=== PATIENT | male | born 1935 | race African-American/Black ===

== ENCOUNTER 2018-04-08 11:30 | Emergency (ER) | payer MEDICARE, OTHER ==
[~2018-04-08] VITALS: Ht 167.6 cm; Wt 65.0 kg
[2018-04-08 12:16] VITALS: BP 157/55
== END 2018-04-08 17:59 | disposition left against medical advice (07) ==
LOC: ER 11:30
DX: Z53.21 Procedure and treatment not carried out due to patient leaving prior to being seen by health care provider (principal)

== ENCOUNTER 2018-04-09 06:19 | Emergency (ER) | payer MEDICARE, OTHER ==
[~2018-04-09] VITALS: Ht 170.2 cm; Wt 85.0 kg
[2018-04-09 12:11] LABS: BASOPHILS % 0.2 % (0.0-2.0); HEMOGLOBIN. 12.5 g/dL (14.0-18.0); LYMPHOCYTES % 33.1 % (20.0-50.0); MEAN CORPUSCULAR HEMOGLOBIN 30.2 pg (28.0-32.0); MEAN CORPUSCULAR VOLUME 89.2 fL (80.0-94.0); MEAN PLATELET VOLUME 7.4 fl (7.4-10.4); MONOCYTES % 5.5 % (2.0-8.0); NEUTROPHILS % 60.2 % (40.0-76.0); PLATELET 235 x1000/uL (130-400); RED BLOOD CELL COUNT 4.15 mill/uL (4.7-6.1)
[2018-04-09 12:12] LABS: CHLORIDE 107 mEq/L (98-107)
[2018-04-09 12:14] LABS: INR 1.1
[2018-04-09 12:20] LABS: C REACTIVE PROTEIN QUANT 1.1 mg/L (0.0-3.0)
[2018-04-09 12:46] VITALS: BP 190/76
[2018-04-09 12:59] LABS: CLARITY URINE CLEAR (CLEAR); COLOR URINE YELLOW (YELLOW); KETONES URINE NEGATIVE (NEGATIVE); LEUKOCYTE ESTERASE URINE NEGATIVE (NEGATIVE); NITRITE URINE NEGATIVE (NEGATIVE); OCCULT BLOOD URINE NEGATIVE (NEGATIVE); PH URINE 7.5 (4.5-8.0); PROTEIN URINE NEGATIVE (NEGATIVE); SPECIFIC GRAVITY URINE 1.011 (1.005-1.030); UROBILINOGEN URINE 0.2 E.U./dL (0.2-1.0)
== END 2018-04-09 15:03 | disposition home or self-care (01) ==
LOC: ER 06:19 → CANBEDREQ 22:20
DX: L97.828 Non-pressure chronic ulcer of other part of left lower leg with other specified severity (principal); D64.9 Anemia, unspecified; Z86.73 Personal history of transient ischemic attack (TIA), and cerebral infarction without residual deficits; Z98.890 Other specified postprocedural states
CPT/HCPCS: 36415; 71045; 83880; 84484; 85651; 86140; 93005; 93923; 99284

== ENCOUNTER 2019-02-16 08:38 | Inpatient (IN) | payer MEDICARE, OTHER ==
[~2019-02-16] VITALS: Ht 165.1 cm; Wt 63.5 kg
[2019-02-16] MEDS ORDERED: HYDRALAZINE 20MG/ML VIAL IV ONE (12:00)
[2019-02-16 12:15] LABS: CHLORIDE 109 mEq/L (98-107)
[2019-02-16 12:23] LABS: BASOPHILS % 0.4 % (0.0-2.0); EOSINOPHILS % 0.7 % (0.0-5.0); HEMATOCRIT. 38.6 % (42.0-52.0); HEMOGLOBIN. 13.2 g/dL (14.0-18.0); LYMPHOCYTES % 29.4 % (20.0-50.0); MEAN CORPUSCULAR VOLUME 87.8 fL (80.0-94.0); MEAN PLATELET VOLUME 7.7 fl (7.4-10.4); MONOCYTES % 5.4 % (2.0-8.0); NEUTROPHILS % 64.1 % (40.0-76.0); PLATELET 239 x1000/uL (130-400); RED CELL DISTRIBUTION WIDTH 13.9 % (11.6-14.6)
[2019-02-16] MEDS ORDERED: CLONIDINE 0.1MG TABLET PO PRN (15:00)
[2019-02-16] MEDS ORDERED: ACETAMINOPHEN 325MG TABLET PO PRN (15:00)
[2019-02-16] MEDS ORDERED: ONDANSETRON HCL 4MG/2ML INJ IV PRN (15:00)
[2019-02-16] MEDS: AMLODIPINE 5MG TABLET PO SCH (17:01)
[2019-02-16] MEDS: LOSARTAN POTASSIUM 50 MG TABLET PO SCH (17:01)
[2019-02-16] MEDS ORDERED: ASPI-1158 PO (17:32)
[2019-02-16] MEDS ORDERED: TIMO5DRO36 OP (17:32)
[2019-02-16 17:49] VITALS: BP 145/95
[2019-02-16] MEDS ORDERED: INFLUENZA VIRUS VACCINE(AFLURIA) 0.5ML SYR IM ONE (19:00)
[2019-02-16] MEDS ORDERED: XALAO EACHEYE (19:30)
[2019-02-16] MEDS ORDERED: BRIM5DRO6 EACHEYE (19:30)
[2019-02-16 20:00] VITALS: BP 151/69
[2019-02-16] MEDS: HEPARIN 5000 UNITS/ML VIAL SUBCUT SCH (20:28)
[2019-02-17] VITALS: BP 134/62
[2019-02-17 04:00] VITALS: BP_SYST 137; BP_SYST 139; BP_DIAS 55; BP_DIAS 62
[2019-02-17 06:21] LABS: BASOPHILS % 0.5 % (0.0-2.0); EOSINOPHILS % 1.5 % (0.0-5.0); HEMATOCRIT. 35.6 % (42.0-52.0); HEMOGLOBIN. 12.4 g/dL (14.0-18.0); LYMPHOCYTES % 38.6 % (20.0-50.0); MEAN CORPUSCULAR HEMOGLOBIN 30.4 pg (28.0-32.0); MEAN CORPUSCULAR VOLUME 87.6 fL (80.0-94.0); MEAN PLATELET VOLUME 7.5 fl (7.4-10.4); MONOCYTES % 7.8 % (2.0-8.0); NEUTROPHILS % 51.6 % (40.0-76.0); PLATELET 231 x1000/uL (130-400); RED BLOOD CELL COUNT 4.06 mill/uL (4.7-6.1); RED CELL DISTRIBUTION WIDTH 14.1 % (11.6-14.6)
[2019-02-17 06:45] LABS: CHLORIDE 108 mEq/L (98-107)
[2019-02-17 08:00] VITALS: BP 126/79
[2019-02-17] MEDS: AMLODIPINE 5MG TABLET PO SCH (10:06)
[2019-02-17] MEDS: HEPARIN 5000 UNITS/ML VIAL SUBCUT SCH (10:06)
[2019-02-17] MEDS: LOSARTAN POTASSIUM 50 MG TABLET PO SCH (10:07)
[2019-02-17 12:00] VITALS: BP 120/87
[2019-02-17] MEDS ORDERED: AMLO5TAB88 PO (14:06)
[2019-02-17] MEDS ORDERED: LOSA50TA3 PO (14:06)
[2019-02-17 15:52] VITALS: BP_SYST 138; BP_SYST 146; BP_DIAS 72; BP_DIAS 79
[2019-02-17 16:13] VITALS: BP 138/72
== END 2019-02-17 17:40 | disposition home or self-care (01) | DRG 305 ==
LOC: ER 08:38 → 5WST 14:02 → EDBEDREQTM 14:04 → EDBEDREQ 14:04 → ENRESERV 15:33 → 5WST 17:13
PROVIDERS: ADMIT Internal Medicine; ATTEND Internal Medicine
DX: I16.0 Hypertensive urgency (principal); I10 Essential (primary) hypertension; M19.90 Unspecified osteoarthritis, unspecified site; Z86.73 Personal history of transient ischemic attack (TIA), and cerebral infarction without residual deficits
CPT/HCPCS: 36415; 71045; 80053; 83735; 83880; 84484; 85025; 93005; 93306; 97162; 99285; J0360; J1644

== ENCOUNTER 2020-06-14 20:32 | Inpatient (IN) | payer MEDICARE, OTHER ==
[~2020-06-14] VITALS: Ht 167.6 cm; Wt 61.7 kg
[~2020-06-14 20:32] MED LIST: AMLO5TAB88 PO; ASPI-1406 PO; BRIM5DRO6 EACHEYE; LOSA50TA3 PO; TIMO5DRO36 OP; XALAO EACHEYE
[2020-06-14 21:50] LABS: BASOPHILS % 0.1 % (0.0-2.0); EOSINOPHILS % 0.2 % (0.0-5.0); HEMATOCRIT. 34.5 % (42.0-52.0); LYMPHOCYTES % 8.8 % (20.0-50.0); MEAN CORPUSCULAR HEMOGLOBIN 30.8 pg (28.0-32.0); MEAN PLATELET VOLUME 7.6 fl (7.4-10.4); MONOCYTES % 5.3 % (2.0-8.0); NEUTROPHILS % 85.6 % (40.0-76.0); PLATELET 202 x1000/uL (130-400); RED BLOOD CELL COUNT 3.88 mill/uL (4.7-6.1); RED CELL DISTRIBUTION WIDTH 14.2 % (11.6-14.6)
[2020-06-14 21:55] LABS: CHLORIDE 106 mEq/L (98-107)
[2020-06-14 22:01] LABS: ETHANOL BLOOD < 10 mg/dL
[2020-06-14 22:04] LABS: CANNABINOID URINE SCREEN NEGATIVE (NEGATIVE); OPIATES URINE SCREEN NEGATIVE (NEGATIVE)
[2020-06-14 22:05] LABS: *AMPHETAMINES SCREEN URINE NEGATIVE (NEGATIVE); *BARBITURATES SCREEN URINE NEGATIVE (NEGATIVE); *BENZODIAZEPINES SCREEN URINE NEGATIVE (NEGATIVE); *COCAINE SCREEN URINE NEGATIVE (NEGATIVE); METHADONE URINE SCREEN NEGATIVE (NEGATIVE); PHENCYCLIDINE URINE SCREEN NEGATIVE (NEGATIVE)
[2020-06-14] MEDS ORDERED: CEFTRIAXONE 1 G PREMIX 50 ML IV ONE (23:15)
[2020-06-14] MEDS ORDERED: AZITHROMYCIN 500 MG in DEXT 5% WATER 250 ML IV SCH (23:15)
[2020-06-15] MEDS ORDERED: DOCUSATE SODIUM 100MG CAPSULE PO PRN (00:15)
[2020-06-15] MEDS ORDERED: CLONIDINE 0.1MG TABLET PO PRN (00:15)
[2020-06-15] MEDS ORDERED: HYDROCODONE/ACETAMINOPHEN 5/325MG TABLET PO PRN (00:15)
[2020-06-15] MEDS ORDERED: MAGNESIUM/ALUMINUM HYDROXIDE/SIMETHICONE 30ML UDC PO PRN (00:15)
[2020-06-15] MEDS ORDERED: ACETAMINOPHEN 325MG TABLET PO PRN (00:15)
[2020-06-15] MEDS ORDERED: ONDANSETRON HCL 4MG/2ML INJ IV PRN (00:15)
[2020-06-15 04:30] VITALS: BP 157/66
[2020-06-15 05:26] VITALS: BP 157/66
[2020-06-15] MEDS ORDERED: ATOR10TA69 PO (05:35)
[2020-06-15] MEDS ORDERED: FERR325T6 PO (05:35)
[2020-06-15 08:00] VITALS: BP 148/66
[2020-06-15] MEDS: ASPIRIN 81MG EC TABLET PO SCH (08:38)
[2020-06-15] MEDS ORDERED: ENOXAPARIN 40MG/0.4ML SYR SUBCUT SCH (09:00)
[2020-06-15] MEDS ORDERED: AMLODIPINE 10MG TABLET PO SCH (09:00)
[2020-06-15] MEDS ORDERED: ASPIRIN 81MG EC TABLET PO SCH (11:15)
[2020-06-15] MEDS ORDERED: AMLODIPINE 5MG TABLET PO SCH (11:15)
[2020-06-15 12:00] VITALS: BP 135/52
[2020-06-15] MEDS: BRIMONIDINE 0.2% OPHTH DROPS 5ML EACHEYE SCH ×2 (13:18→21:01)
[2020-06-15] MEDS: ATORVASTATIN CALCIUM 10MG TABLET PO SCH (13:18)
[2020-06-15] MEDS: LOSARTAN POTASSIUM 50 MG TABLET PO SCH (13:18)
[2020-06-15 16:00] VITALS: BP 138/60
[2020-06-15 20:00] VITALS: BP 113/53
[2020-06-15] MEDS: TIMOLOL MALEATE 0.5% OPHTH DROPS 5ML EACHEYE SCH (21:00)
[2020-06-15] MEDS ORDERED: LATANOPROST 0.005% OPHTH DROPS 2.5ML EACHEYE SCH (21:00)
[2020-06-16] VITALS: BP 103/48
[2020-06-16 04:00] VITALS: BP 127/58
[2020-06-16] MEDS: BRIMONIDINE 0.2% OPHTH DROPS 5ML EACHEYE SCH ×2 (06:00→14:25)
[2020-06-16 06:21] LABS: CHLORIDE 108 mEq/L (98-107)
[2020-06-16 06:34] LABS: BASOPHILS % 0.4 % (0.0-2.0); EOSINOPHILS % 1.2 % (0.0-5.0); HEMATOCRIT. 33.3 % (42.0-52.0); HEMOGLOBIN. 11.4 g/dL (14.0-18.0); LYMPHOCYTES % 33.7 % (20.0-50.0); MEAN CORPUSCULAR HEMOGLOBIN 30.4 pg (28.0-32.0); MEAN CORPUSCULAR VOLUME 88.9 fL (80.0-94.0); MEAN PLATELET VOLUME 7.9 fl (7.4-10.4); MONOCYTES % 11.9 % (2.0-8.0); NEUTROPHILS % 52.8 % (40.0-76.0); PLATELET 183 x1000/uL (130-400); RED BLOOD CELL COUNT 3.75 mill/uL (4.7-6.1); RED CELL DISTRIBUTION WIDTH 14.3 % (11.6-14.6)
[2020-06-16] MEDS ORDERED: ENOXAPARIN 30MG/0.3ML SYR SUBCUT SCH (09:00)
[2020-06-16] MEDS ORDERED: AMLODIPINE 5MG TABLET PO SCH (09:00)
[2020-06-16] MEDS: ATORVASTATIN CALCIUM 10MG TABLET PO SCH (09:04)
[2020-06-16] MEDS: LOSARTAN POTASSIUM 50 MG TABLET PO SCH (09:04)
[2020-06-16] MEDS: ASPIRIN 81MG EC TABLET PO SCH (09:04)
[2020-06-16] MEDS: TIMOLOL MALEATE 0.5% OPHTH DROPS 5ML EACHEYE SCH (09:05)
[2020-06-16 12:03] VITALS: BP 120/64
[2020-06-16 13:03] VITALS: BP 120/64
[2020-06-16 16:00] VITALS: BP 118/68
== END 2020-06-16 16:54 | disposition home or self-care (01) | DRG 69 ==
LOC: ER 20:32 → 6EST 23:10 → EDBEDREQSVC 06-15 03:08 → ENRESERV 06-15 04:01 → 6WST 06-15 18:14
PROVIDERS: ADMIT Hospitalist; ATTEND Hospitalist
DX: G45.9 Transient cerebral ischemic attack, unspecified (principal); E78.5 Hyperlipidemia, unspecified; I10 Essential (primary) hypertension; Z86.73 Personal history of transient ischemic attack (TIA), and cerebral infarction without residual deficits; I45.10 Unspecified right bundle-branch block; D64.9 Anemia, unspecified; M19.90 Unspecified osteoarthritis, unspecified site; Z79.82 Long term (current) use of aspirin; Z79.899 Other long term (current) drug therapy
CPT/HCPCS: 36415; 70551; 71045; 80053; 80305; 80320; 83605; 83735; 83880; 84443; 84484; 85025; 86850; 86900; 93005; 93306; 93970; 97162; 97166; 97535; 99285; J0456; J0696; J1650; J7060; G0480

== ENCOUNTER 2021-08-12 15:57 | Emergency (ER) | payer MEDICARE, OTHER ==
[~2021-08-12] VITALS: Ht 172.7 cm; Wt 75.0 kg
[~2021-08-12 15:57] MED LIST changes: +ATOR10TA69 PO; +FERR325T6 PO
[2021-08-12 17:04] VITALS: BP 149/61
== END 2021-08-12 20:27 | disposition left against medical advice (07) ==
LOC: ER 15:57
DX: Z53.21 Procedure and treatment not carried out due to patient leaving prior to being seen by health care provider (principal)